=== PATIENT | female | born 1955 | race Caucasian/White ===

== ENCOUNTER 2021-06-15 16:35 | Inpatient (IN) ==
[2021-06-15 17:21] LABS: Bacteria,Urine Few per hpf (None-Few); Bilirubin,Urine Negative (Negative); Blood,Urine Negative (Negative); Clarity,Urine Turbid (Clear); Color,Urine Yellow (Yellow); Glucose,Urine (UA) Normal (Normal); Ketones,Urine Negative (Negative); Leukocyte Esterase,Urine Moderate (Negative); Mucus,Urine Few per lpf (None-Few); Nitrite,Urine Positive (Negative); Protein,Urine 30 mg/dL (Neg-Trace); RBC,Urine 0-3 per hpf (0-3); Specific Gravity,Urine 1.021 (1.010-1.025); Squamous Epithelial Cell,Urine Few per hpf (None-Few); Urobilinogen,Urine Normal (Normal); WBC,Urine 50-100 per hpf (0-3)
[2021-06-15 17:41] LABS: Basophils % 0.3 %; Hematocrit 36.4 % (35.3-44.9); Hemoglobin 11.9 g/dL (11.5-15.4); Immature Granulocytes % 0.9 % (0-4); Lymphocytes # 0.2 K/mcL (0.6-4.6); Lymphocytes % 2.1 %; Mean Corpuscular HGB Conc 32.7 g/dL (31.6-35.5); Mean Corpuscular Hemoglobin 28.7 pg (28.0-33.3); Mean Corpuscular Volume 87.9 fL (83.0-100.0); Mean Platelet Volume 10.7 fL (9.4-12.4); Monocytes # 0.1 K/mcL (0.0-1.3); Monocytes % 1.1 %; Neutrophils # 7.2 K/mcL (1.6-8.9); Platelet Count 120 K/mcL (140-400); Red Blood Count 4.14 M/mcL (3.82-4.97); Red Cell Distribution Width 13.7 % (11.5-14.5); Segmented Neutrophils % 95.6 %; White Blood Count 7.5 K/mcL (4.3-11.1)
[2021-06-15 17:54] LABS: Platelet Estimate Decreased (Normal)
[2021-06-15 17:55] LABS: Influenza A PCR Negative (Negative); Influenza B PCR Negative (Negative); Resp. Syncytial Virus PCR Negative (Negative)
[2021-06-15 18:00] LABS: Alanine Aminotransferase 92 Units/L (7-52); Albumin 3.5 g/dL (3.5-5.7); Albumin/Globulin Ratio 1.6 (1.1-2.2); Alkaline Phosphatase 63 Units/L (34-104); Aspartate Amino Transferase 101 Units/L (13-39); BUN/Creatinine Ratio 14 (6-26); Bilirubin,Total 0.8 mg/dL (0.3-1.0); Blood Urea Nitrogen 19 mg/dL (8-23); Calcium 8.6 mg/dL (8.6-10.3); Carbon Dioxide 22 mEq/L (23-29); Chloride 107 mEq/L (98-107); Globulin 2.2 g/dL (2.4-3.5); Glucose 133 mg/dL (70-105); Osmolality,Calculated 292 (280-300); Potassium 3.6 mEq/L (3.5-5.1); Sodium 139 mEq/L (136-145); Total Protein 5.7 g/dL (6.4-8.9); Troponin I < 0.03 ng/mL (< 0.04); eGFR For African Americans 47 (> 60); eGFR For Non-African Americans 39 (> 60)
[2021-06-15 18:07] LABS: SARS-CoV-2 by PCR (In House) Negative (Negative)
[2021-06-15] MEDS ORDERED: Isovue-370 500 ML BOTTLE IVP ONE (18:25)
[2021-06-15] MEDS ORDERED: 0.9 % Sodium Chloride 1,000 ML IV ONE (18:26)
[2021-06-15] MEDS ORDERED: cefTRIAXone 1,000 MG in 0.9 % Sodium Chloride Mini Bag 100 ML IVPB ONE ×2 (19:17→22:57)
[2021-06-15] MEDS ORDERED: Ondansetron 4 MG/2 ML VIAL IVP ONE (19:17)
[2021-06-15] MEDS ORDERED: Naloxone 0.4 MG/ML INJ IVP PRN (21:49)
[2021-06-15] MEDS ORDERED: *HR* HYDROcodone/Acet 5/325 mg TABLET PO PRN (21:49)
[2021-06-15] MEDS ORDERED: Acetaminophen 325 MG TABLET PO PRN (21:49)
[2021-06-15] MEDS ORDERED: Melatonin 3 MG TABLET PO PRN (21:49)
[2021-06-15] MEDS ORDERED: *HR* OxyCODONE Immed Rel 5 MG TABLET PO PRN (21:49)
[2021-06-15] MEDS ORDERED: Ondansetron ODT 4 MG TAB.RAPDIS SL PRN (21:49)
[2021-06-15] MEDS ORDERED: 0.9 % Sodium Chloride 1,000 ML IVC SCH (22:00)
[2021-06-15] MEDS ORDERED: Acetaminophen IV 1,000 MG/100 ML BAG IVPB ONE (22:47)
[2021-06-15] MEDS ORDERED: 0.9 % Sodium Chloride 1,000 ML IVC ONE (23:51)
[2021-06-16 00:34] LABS: Mean Platelet Volume 10.9 fL (9.4-12.4); Red Cell Distribution Width 13.9 % (11.5-14.5)
[2021-06-16 00:36] LABS: Hematocrit 35.9 % (35.3-44.9); Hemoglobin 11.5 g/dL (11.5-15.4); Immature Platelets 3.5 % (1.1-6.1); Mean Corpuscular Hemoglobin 28.6 pg (28.0-33.3); Mean Corpuscular Volume 89.3 fL (83.0-100.0); Red Blood Count 4.02 M/mcL (3.82-4.97); White Blood Count 5.7 K/mcL (4.3-11.1)
[2021-06-16 00:42] LABS: INR 1.2; Prothrombin Time 13.8 Seconds (9.4-12.1)
[2021-06-16 00:44] LABS: Activated Partial Thrombo Time 37.9 Seconds (26.0-36.0)
[2021-06-16 00:53] LABS: Calcium 7.9 mg/dL (8.6-10.3); Chol/HDL Ratio 4.2 (0-4.9); Magnesium 1.3 mg/dL (1.6-2.6); Phosphorous 1.4 mg/dL (2.7-4.5); Potassium 3.1 mEq/L (3.5-5.1)
[2021-06-16] MEDS ORDERED: 0.9 % Sodium Chloride 1,000 ML IVC ONE (01:00)
[2021-06-16] MEDS ORDERED: Potassium Phosphate 44 MEQ in 0.9 % Sodium Chloride 250 ML IVPB ONE (02:30)
[2021-06-16] MEDS ORDERED: Norepinephrine 4 MG/254 ML IV.SOLN IVC SCH ×3 (03:45→05:31)
[2021-06-16] MEDS ORDERED: 0.9 % Sodium Chloride 1,000 ML IVC SCH ×2 (05:31→08:42)
[2021-06-16] MEDS: 0.9 % Sodium Chloride 1,000 ML IVC SCH ×2 (05:40→05:41)
[2021-06-16] MEDS ORDERED: cefTRIAXone 1,000 MG in 0.9 % Sodium Chloride Mini Bag 100 ML IVPB SCH ×2 (06:00→09:00)
[2021-06-16] MEDS ORDERED: cefTRIAXone 2,000 MG in 0.9 % Sodium Chloride Mini Bag 100 ML IVPB SCH ×2 (06:00→09:00)
[2021-06-16] MEDS ORDERED: Dextrose Gel 15 GM/37.5 ML TUBE PO PRN ×4 (06:05→08:42)
[2021-06-16] MEDS ORDERED: D5% in Water 1,000 ML IVC PRN ×2 (06:05→08:42)
[2021-06-16] MEDS ORDERED: *HR* Dextrose 50 % in Water (Syg) 50 ML SYRINGE IVP PRN ×2 (06:05→08:42)
[2021-06-16] MEDS ORDERED: *HR* HYDROcodone/Acet 5/325 mg TABLET PO PRN (06:09)
[2021-06-16] MEDS ORDERED: *HR* OxyCODONE Immed Rel 5 MG TABLET PO PRN ×2 (06:09→08:42)
[2021-06-16] MEDS ORDERED: Lidocaine -MPF 2% 5 ML VIAL ONE (06:21)
[2021-06-16] MEDS ORDERED: Ondansetron 4 MG/2 ML VIAL ONE (06:21)
[2021-06-16] MEDS ORDERED: *HR* Propofol 200 MG/20 ML VIAL IVP ONE (06:21)
[2021-06-16] MEDS ORDERED: *HR* Etomidate 40 MG/20 ML VIAL IVP ONE (06:24)
[2021-06-16] MEDS ORDERED: Albumin Human 5% 0 GM/0 ML IV.SOLN ONE (06:26)
[2021-06-16] MEDS ORDERED: *HR* Vasopressin 20 UNIT/ML VIAL ONE (06:26)
[2021-06-16] MEDS ORDERED: *HR* Rocuronium Bromide 50 MG/5 ML VIAL ONE (06:43)
[2021-06-16] MEDS ORDERED: *HR* Succinylcholine 200 MG/10 ML VIAL IVP ONE (06:43)
[2021-06-16] MEDS ORDERED: Lidocaine HCL 4 ML Topical Solution (Laryng-O-Jet Kit Sterile Pak) TP ONE (07:06)
[2021-06-16] MEDS ORDERED: Heparin 1,000 UNITS/500 mL 500 ML ONE (07:07)
[2021-06-16] MEDS ORDERED: *HR* Midazolam HCl 2 MG/2 ML VIAL ONE (07:49)
[2021-06-16 08:00] LABS: ABG Base Excess -13 mEq/L (-2 to 3); ABG HCO3 11 mEq/L (21-27); ABG Oxygen Saturation 89 % (95-98); ABG PCO2 22 mmHg (35-45); ABG PH 7.31 pH Units (7.32-7.45); ABG PO2 59 mmHg (85-104); ABG TCO2 12 mEq/L (20-26)
[2021-06-16 08:14] LABS: ABG Base Excess -14 mEq/L (-2 to 3); ABG HCO3 11 mEq/L (21-27); ABG Oxygen Saturation 96 % (95-98); ABG PCO2 25 mmHg (35-45); ABG PH 7.27 pH Units (7.32-7.45); ABG PO2 91 mmHg (85-104); ABG TCO2 12 mEq/L (20-26)
[2021-06-16] MEDS ORDERED: Isovue-370 500 ML BOTTLE IVP ONE (08:42)
[2021-06-16] MEDS ORDERED: Naloxone 0.4 MG/ML INJ IVP PRN (08:42)
[2021-06-16] MEDS ORDERED: Ondansetron ODT 4 MG TAB.RAPDIS SL PRN (08:42)
[2021-06-16] MEDS: Norepinephrine 4 MG/254 ML IV.SOLN IVC SCH ×2 (09:03→15:47)
[2021-06-16] MEDS: cefTRIAXone 2,000 MG in 0.9 % Sodium Chloride Mini Bag 100 ML IVPB SCH (09:18)
[2021-06-16] MEDS ORDERED: Ringers Solution, Lactated 1,000 ML IVC SCH (09:30)
[2021-06-16] MEDS: Dexmedetomidine HCl 400 MCG/100 ML MLS IVC SCH ×2 (09:33→22:29)
[2021-06-16 12:07] LABS: Calcium 7.3 mg/dL (8.6-10.3); Magnesium 2.1 mg/dL (1.6-2.6)
[2021-06-16] MEDS ORDERED: Sodium Bicarbonate 150 MEQ in D5% in Water 1,000 ML IVC SCH (12:45)
[2021-06-16] MEDS: Sodium Bicarbonate 75 MEQ in 0.45 % Sodium Chloride 1,000 ML IVC SCH ×2 (13:35→14:07)
[2021-06-16 13:57] LABS: Sodium, Urine 41.6 mEq/L
[2021-06-16 16:52] LABS: Calcium 7.2 mg/dL (8.6-10.3); Magnesium 2.3 mg/dL (1.6-2.6); Phosphorous 4.4 mg/dL (2.7-4.5); Potassium 4.3 mEq/L (3.5-5.1)
[2021-06-17] MEDS: Sodium Bicarbonate 75 MEQ in 0.45 % Sodium Chloride 1,000 ML IVC SCH ×3 (00:26→21:08)
[2021-06-17] MEDS: *HR* HYDROcodone/Acet 5/325 mg TABLET PO PRN ×2 (02:26→11:56)
[2021-06-17 04:15] LABS: Mean Corpuscular Hemoglobin 29.6 pg (28.0-33.3); Red Cell Distribution Width 14.6 % (11.5-14.5)
[2021-06-17 04:17] LABS: Hematocrit 33.7 % (35.3-44.9); Hemoglobin 11.2 g/dL (11.5-15.4); Mean Corpuscular HGB Conc 33.2 g/dL (31.6-35.5); Mean Corpuscular Volume 88.9 fL (83.0-100.0); Mean Platelet Volume 12.6 fL (9.4-12.4); Red Blood Count 3.79 M/mcL (3.82-4.97); White Blood Count 15.3 K/mcL (4.3-11.1)
[2021-06-17 04:28] LABS: Platelet Count 60 K/mcL (140-400)
[2021-06-17 04:30] LABS: Albumin 2.7 g/dL (3.5-5.7); Albumin/Globulin Ratio 1.3 (1.1-2.2); Bilirubin,Direct 0.1 mg/dL (0.0-0.2); Bilirubin,Indirect 0.4 mg/dL (0.0-1.0); Bilirubin,Total 0.5 mg/dL (0.3-1.0); Calcium 7.1 mg/dL (8.6-10.3); Globulin 2.1 g/dL (2.4-3.5); Magnesium 2.2 mg/dL (1.6-2.6); Total Protein 4.8 g/dL (6.4-8.9); Uric Acid 4.9 mg/dL (2.3-7.6)
[2021-06-17 04:38] LABS: VBG Ionized Calcium 1.05 mmol/L (1.15-1.35)
[2021-06-17 04:47] LABS: Platelet Estimate Decreased (Normal)
[2021-06-17 04:48] LABS: Basophils # 0.6 K/mcL (0.0-0.2); Lymphocytes # 0.9 K/mcL (0.6-4.6); Neutrophils # 13.5 K/mcL (1.6-8.9)
[2021-06-17] MEDS: Acetaminophen 325 MG TABLET PO PRN ×2 (09:10→20:08)
[2021-06-17] MEDS: Dexmedetomidine HCl 400 MCG/100 ML MLS IVC SCH ×2 (09:14→18:42)
[2021-06-17] MEDS: cefTRIAXone 2,000 MG in 0.9 % Sodium Chloride Mini Bag 100 ML IVPB SCH (09:16)
[2021-06-17] MEDS: Norepinephrine 4 MG/254 ML IV.SOLN IVC SCH ×3 (10:29→20:07)
[2021-06-17] MEDS ORDERED: Perflutren Lipid Microsphere 1.3 ML in 0.9 % Sodium Chloride 8.7 ML IVP PRN (22:03)
[2021-06-18] MEDS: *HR* HYDROcodone/Acet 5/325 mg TABLET PO PRN ×2 (01:22→14:36)
[2021-06-18] MEDS: Dexmedetomidine HCl 400 MCG/100 ML MLS IVC SCH ×2 (04:27→20:56)
[2021-06-18 05:00] LABS: Basophils % 0.2 %; Mean Corpuscular Volume 87.1 fL (83.0-100.0); Red Cell Distribution Width 14.4 % (11.5-14.5)
[2021-06-18 05:02] LABS: Eosinophils # 0.1 K/mcL (0.0-0.6); Eosinophils % 0.4 %; Hematocrit 32.4 % (35.3-44.9); Hemoglobin 10.8 g/dL (11.5-15.4); Immature Granulocytes % 0.2 % (0-4); Immature Platelets 9.9 % (1.1-6.1); Lymphocytes # 0.6 K/mcL (0.6-4.6); Lymphocytes % 4.7 %; Mean Corpuscular HGB Conc 33.3 g/dL (31.6-35.5); Mean Platelet Volume 11.7 fL (9.4-12.4); Monocytes # 0.4 K/mcL (0.0-1.3); Neutrophils # 11.7 K/mcL (1.6-8.9); Red Blood Count 3.72 M/mcL (3.82-4.97); Segmented Neutrophils % 91.5 %; White Blood Count 12.8 K/mcL (4.3-11.1)
[2021-06-18 05:03] LABS: Platelet Count 53 K/mcL (140-400)
[2021-06-18 05:04] LABS: VBG Ionized Calcium 1.09 mmol/L (1.15-1.35)
[2021-06-18 05:25] LABS: BUN/Creatinine Ratio 22 (6-26); Blood Urea Nitrogen 18 mg/dL (8-23); Calcium 7.5 mg/dL (8.6-10.3); Carbon Dioxide 24 mEq/L (23-29); Chloride 108 mEq/L (98-107); Glucose 105 mg/dL (70-105); Osmolality,Calculated 286 (280-300); Potassium 3.6 mEq/L (3.5-5.1); Sodium 137 mEq/L (136-145); eGFR For African Americans > 60 (> 60); eGFR For Non-African Americans > 60 (> 60)
[2021-06-18] MEDS: Norepinephrine 4 MG/254 ML IV.SOLN IVC SCH (05:51)
[2021-06-18] MEDS: Sodium Bicarbonate 75 MEQ in 0.45 % Sodium Chloride 1,000 ML IVC SCH (07:21)
[2021-06-18] MEDS: cefTRIAXone 2,000 MG in 0.9 % Sodium Chloride Mini Bag 100 ML IVPB SCH (07:22)
[2021-06-18] MEDS: Acetaminophen 325 MG TABLET PO PRN (10:19)
[2021-06-18 10:35] LABS: VBG HCO3 23 mEq/L (21-27); VBG PCO2 32 mmHg (41-51); VBG PH 7.46 pH Units (7.32-7.42); VBG PO2 198 mmHg (25-50)
[2021-06-18 11:11] LABS: Fibrinogen 611 mg/dL (169-393)
[2021-06-18 11:27] LABS: D-Dimer 21006 ng/mLFEU (0-500)
[2021-06-18 17:29] LABS: Prothrombin Time 11.5 Seconds (9.4-12.1)
[2021-06-19] MEDS: *HR* HYDROcodone/Acet 5/325 mg TABLET PO PRN (06:04)
[2021-06-19] MEDS: cefTRIAXone 2,000 MG in 0.9 % Sodium Chloride Mini Bag 100 ML IVPB SCH (07:30)
[2021-06-19] MEDS: Pantoprazole 40 MG VIAL IVP SCH (07:32)
[2021-06-19] MEDS: Acetaminophen 325 MG TABLET PO PRN (10:14)
[2021-06-19 11:25] LABS: Basophils % 0.2 %; Immature Granulocytes % 1.8 % (0-4)
[2021-06-19 11:27] LABS: Eosinophils # 0.1 K/mcL (0.0-0.6); Eosinophils % 0.8 %; Hematocrit 34.1 % (35.3-44.9); Hemoglobin 11.1 g/dL (11.5-15.4); Lymphocytes # 0.8 K/mcL (0.6-4.6); Lymphocytes % 8.7 %; Mean Corpuscular HGB Conc 32.6 g/dL (31.6-35.5); Mean Corpuscular Hemoglobin 28.6 pg (28.0-33.3); Mean Corpuscular Volume 87.9 fL (83.0-100.0); Mean Platelet Volume 12.1 fL (9.4-12.4); Monocytes # 0.5 K/mcL (0.0-1.3); Monocytes % 5.9 %; Neutrophils # 7.2 K/mcL (1.6-8.9); Platelet Count 62 K/mcL (140-400); Red Blood Count 3.88 M/mcL (3.82-4.97); Red Cell Distribution Width 14.2 % (11.5-14.5); Segmented Neutrophils % 82.6 %; White Blood Count 8.7 K/mcL (4.3-11.1)
[2021-06-19 11:47] LABS: Platelet Estimate Decreased (Normal)
[2021-06-19 11:49] LABS: BUN/Creatinine Ratio 16 (6-26); Blood Urea Nitrogen 11 mg/dL (8-23); Calcium 7.7 mg/dL (8.6-10.3); Carbon Dioxide 24 mEq/L (23-29); Chloride 106 mEq/L (98-107); Glucose 81 mg/dL (70-105); Magnesium 1.7 mg/dL (1.6-2.6); Osmolality,Calculated 286 (280-300); Potassium 3.2 mEq/L (3.5-5.1); Sodium 139 mEq/L (136-145); eGFR For African Americans > 60 (> 60); eGFR For Non-African Americans > 60 (> 60)
[2021-06-19] MEDS: Norepinephrine 4 MG/254 ML IV.SOLN IVC SCH (12:02)
[2021-06-19] MEDS ORDERED: Isovue-370 500 ML BOTTLE IVP ONE (14:23)
[2021-06-19] MEDS ORDERED: 0.9 % Sodium Chloride 1,000 ML IVC SCH (14:45)
[2021-06-19] MEDS: Melatonin 3 MG TABLET PO PRN (20:28)
[2021-06-19] MEDS ORDERED: *HR* Labetalol 20 MG/4 ML SYRINGE IVP ONE (23:38)
[2021-06-20] MEDS ORDERED: *HR* Labetalol 20 MG/4 ML SYRINGE IVP ONE (07:04)
[2021-06-20] MEDS: Pantoprazole 40 MG VIAL IVP SCH (07:20)
[2021-06-20] MEDS: cefTRIAXone 2,000 MG in 0.9 % Sodium Chloride Mini Bag 100 ML IVPB SCH (07:21)
[2021-06-20 09:45] LABS: Hemoglobin 11.6 g/dL (11.5-15.4)
[2021-06-20 09:47] LABS: Hematocrit 35.3 % (35.3-44.9); Immature Platelets 9.8 % (1.1-6.1); Mean Corpuscular HGB Conc 32.9 g/dL (31.6-35.5); Mean Corpuscular Hemoglobin 28.6 pg (28.0-33.3); Mean Corpuscular Volume 86.9 fL (83.0-100.0); Mean Platelet Volume 11.9 fL (9.4-12.4); Red Blood Count 4.06 M/mcL (3.82-4.97); Red Cell Distribution Width 13.9 % (11.5-14.5); White Blood Count 8.6 K/mcL (4.3-11.1)
[2021-06-20 09:49] LABS: BUN/Creatinine Ratio 14 (6-26); Blood Urea Nitrogen 8 mg/dL (8-23); Carbon Dioxide 23 mEq/L (23-29); Chloride 103 mEq/L (98-107); Glucose 149 mg/dL (70-105); Magnesium 1.6 mg/dL (1.6-2.6); Osmolality,Calculated 283 (280-300); Potassium 3.1 mEq/L (3.5-5.1); Sodium 136 mEq/L (136-145); eGFR For African Americans > 60 (> 60); eGFR For Non-African Americans > 60 (> 60)
[2021-06-20 09:56] LABS: Platelet Count 67 K/mcL (140-400)
[2021-06-20 10:51] LABS: Lymphocytes # 1.6 K/mcL (0.6-4.6); Monocytes # 0.4 K/mcL (0.0-1.3); Neutrophils # 6.5 K/mcL (1.6-8.9); Platelet Estimate Decreased (Normal); Reactive Lymphocytes Present (Not Present); Toxic Granulation Present (Not Present)
[2021-06-20] MEDS: *HR* HYDROcodone/Acet 5/325 mg TABLET PO PRN (15:17)
[2021-06-20] MEDS: amLODIPine 5 MG TABLET PO SCH (15:17)
[2021-06-20] MEDS ORDERED: Haloperidol Lactate 5 MG/ML VIAL IM ONE (22:04)
[2021-06-21] MEDS ORDERED: Haloperidol Lactate 5 MG/ML VIAL IM PRN (08:56)
[2021-06-21] MEDS ORDERED: Haloperidol Lactate 5 MG/ML VIAL IVP PRN (09:01)
[2021-06-21] MEDS: cefTRIAXone 2,000 MG in 0.9 % Sodium Chloride Mini Bag 100 ML IVPB SCH (09:08)
[2021-06-21] MEDS: Pantoprazole 40 MG VIAL IVP SCH (09:08)
[2021-06-21] MEDS: FLUoxetine 20 MG CAPSULE PO SCH (09:08)
[2021-06-21] MEDS: amLODIPine 5 MG TABLET PO SCH (09:08)
[2021-06-21 10:12] LABS: Hemoglobin 11.5 g/dL (11.5-15.4)
[2021-06-21 10:14] LABS: Basophils # 0.1 K/mcL (0.0-0.2); Immature Platelets 6.1 % (1.1-6.1); Mean Corpuscular HGB Conc 32.9 g/dL (31.6-35.5); Mean Corpuscular Hemoglobin 28.8 pg (28.0-33.3); Mean Corpuscular Volume 87.5 fL (83.0-100.0); Mean Platelet Volume 10.9 fL (9.4-12.4); Platelet Count 101 K/mcL (140-400); White Blood Count 12.1 K/mcL (4.3-11.1)
[2021-06-21 10:31] LABS: Eosinophils # 0.2 K/mcL (0.0-0.6); Lymphocytes # 1.8 K/mcL (0.6-4.6); Monocytes # 1.1 K/mcL (0.0-1.3); Neutrophils # 8.6 K/mcL (1.6-8.9)
[2021-06-21 10:32] LABS: Platelet Estimate Slight Decrease (Normal)
[2021-06-21 10:35] LABS: BUN/Creatinine Ratio 13 (6-26); Blood Urea Nitrogen 8 mg/dL (8-23); Calcium 8.3 mg/dL (8.6-10.3); Carbon Dioxide 23 mEq/L (23-29); Chloride 106 mEq/L (98-107); Glucose 122 mg/dL (70-105); Magnesium 1.8 mg/dL (1.6-2.6); Osmolality,Calculated 284 (280-300); Potassium 3.6 mEq/L (3.5-5.1); Sodium 137 mEq/L (136-145); eGFR For African Americans > 60 (> 60); eGFR For Non-African Americans > 60 (> 60)
[2021-06-21] MEDS: Melatonin 3 MG TABLET PO PRN (21:23)
[2021-06-21] MEDS: Acetaminophen 325 MG TABLET PO PRN (21:23)
[2021-06-22] MEDS: amLODIPine 5 MG TABLET PO SCH (08:00)
[2021-06-22] MEDS: FLUoxetine 20 MG CAPSULE PO SCH (08:00)
[2021-06-22] MEDS: cefTRIAXone 2,000 MG in 0.9 % Sodium Chloride Mini Bag 100 ML IVPB SCH (08:01)
[2021-06-22 12:50] LABS: Hemoglobin 11.4 g/dL (11.5-15.4); Mean Corpuscular HGB Conc 32.6 g/dL (31.6-35.5); Mean Corpuscular Hemoglobin 28.6 pg (28.0-33.3); Mean Corpuscular Volume 87.7 fL (83.0-100.0); Platelet Count 137 K/mcL (140-400); Red Blood Count 3.99 M/mcL (3.82-4.97); Red Cell Distribution Width 13.7 % (11.5-14.5); White Blood Count 13.8 K/mcL (4.3-11.1)
[2021-06-22 13:19] LABS: BUN/Creatinine Ratio 17 (6-26); Blood Urea Nitrogen 10 mg/dL (8-23); Calcium 8.2 mg/dL (8.6-10.3); Carbon Dioxide 23 mEq/L (23-29); Chloride 104 mEq/L (98-107); Glucose 89 mg/dL (70-105); Osmolality,Calculated 285 (280-300); Potassium 3.4 mEq/L (3.5-5.1); Sodium 138 mEq/L (136-145); eGFR For African Americans > 60 (> 60); eGFR For Non-African Americans > 60 (> 60)
[2021-06-22 13:30] LABS: Lymphocytes # 1.4 K/mcL (0.6-4.6); Monocytes # 0.8 K/mcL (0.0-1.3); Neutrophils # 11.6 K/mcL (1.6-8.9); Platelet Estimate Normal (Normal)
[2021-06-22 13:31] LABS: Anisocytosis 1+ (Not Present)
[2021-06-22] MEDS: Acetaminophen 325 MG TABLET PO PRN (21:14)
[2021-06-22] MEDS: Melatonin 3 MG TABLET PO PRN (21:15)
[2021-06-23] MEDS ORDERED: *HR* Enoxaparin 40 MG/0.4 ML SYRINGE SQ SCH (06:00)
[2021-06-23] MEDS: FLUoxetine 20 MG CAPSULE PO SCH (09:06)
[2021-06-23] MEDS: cefTRIAXone 2,000 MG in 0.9 % Sodium Chloride Mini Bag 100 ML IVPB SCH ×2 (09:06→09:50)
[2021-06-23] MEDS: amLODIPine 5 MG TABLET PO SCH (09:06)
[2021-06-23] MEDS ORDERED: Cefdinir 300 MG CAPSULE PO SCH (09:30)
[2021-06-23 11:59] VITALS: O2SAT 97
[2021-06-23 14:54] VITALS: BP 132/65; PULSE 97; TEMP 98.1
== END 2021-06-23 15:56 | disposition home health service (06) | DRG 853 ==
LOC: 4WAOSI 16:35 → EMEROOARM 16:35 → SUATTDRO 22:20 → 4WAOSI 22:47 → 2NNU 06-16 02:35 → SUATTDRO 06-16 06:12 → 3ANU 06-20 19:12
PROVIDERS: ADMIT Internal Medicine; ATTEND Family Medicine